=== PATIENT | male | born 1940 | race Hispanic/Latino ===

== ENCOUNTER 2022-02-02 02:06 | Observation (INO) | payer MEDICARE ==
[~2022-02-02] VITALS: Ht 180.3 cm; Wt 102.1 kg
[~2022-02-02 02:06] MED LIST: ALPR1TAB7 PO; DILT240C94 PO; ERGO500093 PO; LOSA100T58 PO; METO-408 PO; ROSU20TA31 PO; SPIR25TA6 PO
[2022-02-02 02:50] LABS: BASOPHILS % (AUTO) 0.5 % (0.0-5.0); EOSINOPHILS % (AUTO) 1.4 % (0.0-8.0); HEMATOCRIT 47.9 % (42-54); LYMPHOCYTES % (AUTO) 32.9 % (21.0-51.0); MEAN CORPUSCULAR HEMOGLOBIN 31.8 pg (27.0-33.0); MEAN CORPUSCULAR HGB CONC 33.6 g/dL (32.0-36.0); MEAN CORPUSCULAR VOLUME 94.5 fL (79-99); NEUTROPHILS % (AUTO) 54.8 % (40.0-77.0); PLATELET COUNT (AUTO) 251 K/uL (130-400); RED BLOOD CELL COUNT(AUTO) 5.07 MIL/uL (4.50-6.20); RED CELL DISTRIBUTION WIDTH 12.1 % (11.0-15.5); WHITE BLOOD COUNT (AUTO) 9.5 K/uL (4.8-10.8)
[2022-02-02 02:54] LABS: APPEARANCE,URINE CLEAR (CLEAR); BILIRUBIN,URINE NEGATIVE (NEGATIVE); COLOR,URINE COLORLESS (YELLOW); GLUCOSE, URINE (UA) NEGATIVE (NEGATIVE); KETONES,URINE NEGATIVE (NEGATIVE); LEUKOCYTE ESTERASE ,URINE NEGATIVE Leu/uL (NEGATIVE); NITRATE,URINE NEGATIVE (NEGATIVE); OCCULT BLOOD,URINE NEGATIVE (NEGATIVE); PH,URINE 6.5 (5.0-8.0); PROTEIN,URINE NEGATIVE (NEGATIVE); UROBILINOGEN,URINE 0.2 mg/dL (0.2-1.0)
[2022-02-02 02:59] LABS: CREATININE 1.2 mg/dL (0.5-1.5)
[2022-02-02 03:01] LABS: AMPHET/METH SCREEN,URINE NEGATIVE (NEGATIVE); BARBITURATE SCREEN, URINE NEGATIVE (NEGATIVE); BENZODIAZEPINES SCREEN,URINE POSITIVE (NEGATIVE); CANNABINOID SCREEN,URINE NEGATIVE (NEGATIVE); COCAINE SCREEN,URINE NEGATIVE (NEGATIVE); OPIATE SCREEN,URINE NEGATIVE (NEGATIVE); PHENCYCLIDINE SCREEN,URINE NEGATIVE (NEGATIVE)
[2022-02-02 03:04] LABS: ALBUMIN 3.8 g/dL (3.5-5.0); TOTAL PROTEIN, SERUM 8.1 g/dL (6.0-8.3)
[2022-02-02] MEDS ORDERED: ASPI-1197 PO (03:05)
[2022-02-02 03:09] LABS: POTASSIUM 5.8 mmol/L (3.5-5.1)
[2022-02-02] MEDS ORDERED: ALBUTEROL 0.083% 2.5 MG/3 ML INH IH SCH (04:30)
[2022-02-02] MEDS ORDERED: CALCIUM GLUC 1GM 1 GM in 0.9%NACL 100ML 100 ML IV ONE (04:30)
[2022-02-02] MEDS ORDERED: INSULIN HUMULIN R 100 UNIT/ML 3ML IV ONE (04:30)
[2022-02-02] MEDS ORDERED: DEXTROSE 50%-WATER 25 GM/50 ML VIAL IV ONE (04:30)
[2022-02-02] MEDS ORDERED: SODIUM BICARB 8.4% 50ML SYRINGE IVP ONE (04:30)
[2022-02-02] MEDS ORDERED: SODIUM BICARB 50MEQ 50ML VIAL 50 ML ONE (05:32)
[2022-02-02] MEDS ORDERED: CALCIUM GLUC 1GM/10ML VIAL ONE (05:33)
[2022-02-02] MEDS ORDERED: ACETAMINOPHEN 325 MG TAB PO PRN ×2 (06:00)
[2022-02-02] MEDS ORDERED: MORPHINE 2 MG SYG IV PRN (06:00)
[2022-02-02] MEDS ORDERED: ONDANSETRON 4MG INJ IV PRN (06:00)
[2022-02-02] MEDS: 0.9%NACL 1000ML 1,000 ML IV SCH ×2 (06:43→14:27)
[2022-02-02] MEDS ORDERED: KAYEXALATE 15GM/60ML PO ONE (07:00)
[2022-02-02] MEDS ORDERED: ADENOSINE 6MG VIAL IV ONE ×2 (07:05→07:30)
[2022-02-02] MEDS ORDERED: DILTIAZEM 25MG INJ IVP ONE (07:05)
[2022-02-02] MEDS ORDERED: DILTIAZEM 180MG SR CAP PO SCH (07:30)
[2022-02-02] MEDS ORDERED: ENOXAPARIN SODIUM 40 MG/0.4 ML SYRINGE SQ SCH (09:00)
[2022-02-02] MEDS ORDERED: METOPROLOL SUCCINATE 25 MG TAB.SR.24H PO SCH (09:00)
[2022-02-02] MEDS ORDERED: FAMOTIDINE 20MG VIAL IV SCH (09:00)
[2022-02-02 12:10] VITALS: BP 100/48
[2022-02-02] MEDS ORDERED: IOHEXOL 350 MG/ML 100ML INFUS..BTL IV ONE (15:04)
[2022-02-02] MEDS ORDERED: LOSA50TA64 PO (15:13)
[2022-02-02] MEDS ORDERED: ATORVASTATIN 40 MG TABLET PO SCH (21:00)
[2022-02-02] MEDS ORDERED: DILTIAZEM 120MG SR CAP PO SCH (21:00)
[2022-02-02] MEDS ORDERED: SPIRONOLACTONE 25 MG TAB PO SCH (21:00)
[2022-02-03] MEDS ORDERED: LOSARTAN 50 MG TABLET PO SCH (09:00)
[2022-02-03] MEDS ORDERED: METOPROLOL SUCCINATE 25 MG TAB.SR.24H PO SCH (09:00)
[2022-02-03] MEDS ORDERED: LOSARTAN 100 MG TABLET PO SCH (09:00)
[2022-02-03] MEDS ORDERED: ASPIRIN 81MG CHEW TAB PO SCH (09:00)
== END 2022-02-02 17:46 | disposition home or self-care (01) ==
LOC: EDH 02:06 → INTOOBSV 05:55 → EDHIP 05:55 → 2DH 12:24
PROVIDERS: ADMIT Hospitalist; ATTEND Hospitalist
DX: I47.1 Supraventricular tachycardia (principal); I21.A1 Myocardial infarction type 2; E87.5 Hyperkalemia; I95.9 Hypotension, unspecified; I35.0 Nonrheumatic aortic (valve) stenosis; I25.10 Atherosclerotic heart disease of native coronary artery without angina pectoris; I25.2 Old myocardial infarction; E78.5 Hyperlipidemia, unspecified; I10 Essential (primary) hypertension; Q33.3 Agenesis of lung; Z79.82 Long term (current) use of aspirin; Z79.899 Other long term (current) drug therapy
CPT/HCPCS: 99291; 96361; 74174; 96365; 96375; 75574; 71045; 84484 ×2; 80053; 80305; 85025; 82948 ×2; 83605; 86140; 36415; 94640; 96372; 84132; 81003; 93005 ×4; J1815; G0378; J0153; J3490 ×3; J7030; J0610; J1650 ×2; Q9967

== ENCOUNTER 2022-03-12 16:41 | Inpatient (IN) | payer MEDICARE ==
[~2022-03-12] VITALS: Ht 162.6 cm; Wt 101.2 kg
[~2022-03-12 16:41] MED LIST changes: +ASPI-1197 PO; -LOSA100T58 PO; +LOSA50TA64 PO
[2022-03-12 17:02] LABS: BASOPHILS % (AUTO) 0.6 % (0.0-5.0); EOSINOPHILS % (AUTO) 0.4 % (0.0-8.0); HEMATOCRIT 42.6 % (42-54); LYMPHOCYTES % (AUTO) 14.2 % (21.0-51.0); MEAN CORPUSCULAR HEMOGLOBIN 31.5 pg (27.0-33.0); MEAN CORPUSCULAR HGB CONC 32.9 g/dL (32.0-36.0); MEAN CORPUSCULAR VOLUME 95.7 fL (79-99); MONOCYTES % (AUTO) 7.8 % (3.0-13.0); NEUTROPHILS % (AUTO) 76.6 % (40.0-77.0); PLATELET COUNT (AUTO) 179 K/uL (130-400); RED BLOOD CELL COUNT(AUTO) 4.45 MIL/uL (4.50-6.20); RED CELL DISTRIBUTION WIDTH 12.8 % (11.0-15.5); WHITE BLOOD COUNT (AUTO) 8.3 K/uL (4.8-10.8)
[2022-03-12 17:12] LABS: CREATININE 1.1 mg/dL (0.5-1.5); POTASSIUM 4.1 mmol/L (3.5-5.1)
[2022-03-12 17:21] LABS: ALBUMIN 3.7 g/dL (3.5-5.0); TOTAL PROTEIN, SERUM 7.4 g/dL (6.0-8.3)
[2022-03-12 17:25] LABS: APPEARANCE,URINE CLEAR (CLEAR); BILIRUBIN,URINE NEGATIVE (NEGATIVE); COLOR,URINE LIGHT-YELLOW (YELLOW); GLUCOSE, URINE (UA) NEGATIVE (NEGATIVE); KETONES,URINE NEGATIVE (NEGATIVE); LEUKOCYTE ESTERASE ,URINE NEGATIVE Leu/uL (NEGATIVE); NITRATE,URINE NEGATIVE (NEGATIVE); OCCULT BLOOD,URINE NEGATIVE (NEGATIVE); PH,URINE 6.5 (5.0-8.0); PROTEIN,URINE NEGATIVE (NEGATIVE); UROBILINOGEN,URINE 0.2 mg/dL (0.2-1.0)
[2022-03-12 17:29] LABS: BACTERIA,URINE RARE /HPF (None Seen); MUCUS,URINE RARE LPF (None Seen); RBC,URINE 0-1 /HPF (0-1); SQUAMOUS EPITHELIAL CELL,UR RARE /HPF (0-2); WBC,URINE 0-1 /HPF (0-1)
[2022-03-12] MEDS ORDERED: ONDANSETRON 4MG TABLET PO PRN (21:00)
[2022-03-12] MEDS: FAMOTIDINE 20MG TAB PO SCH (21:23)
[2022-03-12] MEDS: ATORVASTATIN 40 MG TABLET PO SCH (21:23)
[2022-03-12] MEDS: ASPIRIN 81MG CHEW TAB PO SCH (21:23)
[2022-03-12 22:14] LABS: INR 0.95 (0.85-1.15); PROTHROMBIN TIME 10.4 SEC (9.6-11.6)
[2022-03-12 22:16] LABS: PARTIAL THROMBOPLASTIN TIME 24.2 SEC (26.3-35.5)
[2022-03-12 22:30] VITALS: BP 132/64
[2022-03-13] MEDS ORDERED: HEPARIN 5,000 UNIT VIAL IV ONE (00:41)
[2022-03-13] MEDS: HEPARIN 25,000 UNITS/250ML D5W 250 ML IV SCH ×3 (01:01→20:12)
[2022-03-13 04:53] VITALS: BP 107/56
[2022-03-13 07:35] VITALS: BP 114/60
[2022-03-13] MEDS: ASPIRIN 81MG CHEW TAB PO SCH (09:38)
[2022-03-13] MEDS: FAMOTIDINE 20MG TAB PO SCH ×2 (09:38→20:15)
[2022-03-13 11:45] VITALS: BP 119/59
[2022-03-13 15:30] VITALS: BP 103/60
[2022-03-13] MEDS ORDERED: METOPROLOL SUCCINATE 25 MG TAB.SR.24H PO ONE (18:49)
[2022-03-13] MEDS: ATORVASTATIN 40 MG TABLET PO SCH (20:15)
[2022-03-13 20:50] VITALS: BP 122/67
[2022-03-13] MEDS: DILTIAZEM 120MG SR CAP PO SCH (21:48)
[2022-03-14 00:02] VITALS: BP 127/64
[2022-03-14 02:19] LABS: BASOPHILS % (AUTO) 0.7 % (0.0-5.0); EOSINOPHILS % (AUTO) 1.5 % (0.0-8.0); HEMATOCRIT 39.1 % (42-54); LYMPHOCYTES % (AUTO) 30.1 % (21.0-51.0); MEAN CORPUSCULAR HEMOGLOBIN 31.6 pg (27.0-33.0); MEAN CORPUSCULAR HGB CONC 33.2 g/dL (32.0-36.0); MEAN CORPUSCULAR VOLUME 95.1 fL (79-99); MONOCYTES % (AUTO) 7.9 % (3.0-13.0); NEUTROPHILS % (AUTO) 59.6 % (40.0-77.0); PLATELET COUNT (AUTO) 150 K/uL (130-400); RED BLOOD CELL COUNT(AUTO) 4.11 MIL/uL (4.50-6.20); RED CELL DISTRIBUTION WIDTH 12.7 % (11.0-15.5); WHITE BLOOD COUNT (AUTO) 5.8 K/uL (4.8-10.8)
[2022-03-14 02:39] LABS: ALBUMIN 3.1 g/dL (3.5-5.0); CREATININE 0.8 mg/dL (0.5-1.5); MAGNESIUM 1.8 mg/dL (1.80-2.40); TOTAL PROTEIN, SERUM 6.4 g/dL (6.0-8.3)
[2022-03-14 03:27] VITALS: BP 118/64
[2022-03-14 07:30] VITALS: BP 128/65
[2022-03-14] MEDS: ASPIRIN 81MG CHEW TAB PO SCH (09:50)
[2022-03-14] MEDS: FAMOTIDINE 20MG TAB PO SCH ×2 (09:50→20:55)
[2022-03-14] MEDS: METOPROLOL SUCCINATE 25 MG TAB.SR.24H PO SCH (09:50)
[2022-03-14 11:35] VITALS: BP 131/70
[2022-03-14 15:29] LABS: INR 0.98 (0.85-1.15); PROTHROMBIN TIME 10.7 SEC (9.6-11.6)
[2022-03-14 15:30] LABS: PARTIAL THROMBOPLASTIN TIME 58.2 SEC (26.3-35.5)
[2022-03-14 15:35] VITALS: BP 108/62
[2022-03-14] MEDS ORDERED: HEPARIN 25,000 UNITS/250ML D5W 250 ML IV SCH (17:00)
[2022-03-14 20:00] VITALS: BP 124/66
[2022-03-14] MEDS: ATORVASTATIN 40 MG TABLET PO SCH (20:55)
[2022-03-14] MEDS: DILTIAZEM 120MG SR CAP PO SCH (20:58)
[2022-03-15] VITALS: BP 111/60
[2022-03-15 04:00] VITALS: BP 121/64
[2022-03-15 08:16] VITALS: BP 119/58
[2022-03-15] MEDS: METOPROLOL SUCCINATE 25 MG TAB.SR.24H PO SCH ×2 (08:28→08:33)
[2022-03-15] MEDS: FAMOTIDINE 20MG TAB PO SCH (08:29)
[2022-03-15] MEDS: ASPIRIN 81MG CHEW TAB PO SCH (08:29)
[2022-03-15 11:45] VITALS: BP 115/56
[2022-03-15 17:10] VITALS: BP 114/64
== END 2022-03-15 18:50 | disposition home or self-care (01) | DRG 281 ==
LOC: EDH 16:41 → EDHIP 20:59 → 4CH 21:43
PROVIDERS: ADMIT Hospitalist; ATTEND Hospitalist
DX: I35.0 Nonrheumatic aortic (valve) stenosis (principal); I21.A1 Myocardial infarction type 2; I48.20 Chronic atrial fibrillation, unspecified; I25.10 Atherosclerotic heart disease of native coronary artery without angina pectoris; I10 Essential (primary) hypertension; E78.00 Pure hypercholesterolemia, unspecified; F19.90 Other psychoactive substance use, unspecified, uncomplicated; I44.0 Atrioventricular block, first degree; Z79.82 Long term (current) use of aspirin; Z79.899 Other long term (current) drug therapy; Z82.49 Family history of ischemic heart disease and other diseases of the circulatory system; Z90.49 Acquired absence of other specified parts of digestive tract
CPT/HCPCS: 36415; 70450; 71045; 72125; 80053; 81001; 83735; 83880; 84484; 85025; 85610; 85730; 93005; 93306; G0378; J1644

== ENCOUNTER → 2022-04-12 | Outpatient (CLI) | payer MEDICARE ==
[2022-04-12 16:24] LABS: BASOPHILS % (AUTO) 0.4 % (0.0-5.0); EOSINOPHILS % (AUTO) 1.4 % (0.0-8.0); HEMATOCRIT 38.7 % (42-54); LYMPHOCYTES % (AUTO) 21.6 % (21.0-51.0); MEAN CORPUSCULAR HEMOGLOBIN 31.2 pg (27.0-33.0); MEAN CORPUSCULAR HGB CONC 32.8 g/dL (32.0-36.0); MEAN CORPUSCULAR VOLUME 95.1 fL (79-99); MONOCYTES % (AUTO) 9.2 % (3.0-13.0); NEUTROPHILS % (AUTO) 66.9 % (40.0-77.0); PLATELET COUNT (AUTO) 185 K/uL (130-400); RED BLOOD CELL COUNT(AUTO) 4.07 MIL/uL (4.50-6.20); RED CELL DISTRIBUTION WIDTH 12.8 % (11.0-15.5); WHITE BLOOD COUNT (AUTO) 7.8 K/uL (4.8-10.8)
[2022-04-12 16:40] LABS: CREATININE 0.9 mg/dL (0.5-1.5); POTASSIUM 3.8 mmol/L (3.5-5.1)
== END | disposition home or self-care (01) ==
LOC: LAB 12:46
PROVIDERS: ATTEND Internal Medicine
DX: I10 Essential (primary) hypertension (principal); I35.0 Nonrheumatic aortic (valve) stenosis
CPT/HCPCS: 36415; 80048; 85025

== ENCOUNTER → 2022-05-16 | Outpatient (CLI) | payer MEDICARE ==
[2022-05-16 12:21] LABS: BASOPHILS % (AUTO) 0.4 % (0.0-5.0); EOSINOPHILS % (AUTO) 1.9 % (0.0-8.0); HEMATOCRIT 41.9 % (42-54); LYMPHOCYTES % (AUTO) 27.6 % (21.0-51.0); MEAN CORPUSCULAR HEMOGLOBIN 30.6 pg (27.0-33.0); MEAN CORPUSCULAR HGB CONC 31.7 g/dL (32.0-36.0); MEAN CORPUSCULAR VOLUME 96.5 fL (79-99); MONOCYTES % (AUTO) 10.6 % (3.0-13.0); PLATELET COUNT (AUTO) 189 K/uL (130-400); RED BLOOD CELL COUNT(AUTO) 4.34 MIL/uL (4.50-6.20); RED CELL DISTRIBUTION WIDTH 14.1 % (11.0-15.5); WHITE BLOOD COUNT (AUTO) 5.7 K/uL (4.8-10.8)
== END | disposition home or self-care (01) ==
LOC: LAB 11:06
PROVIDERS: ATTEND Internal Medicine Cardiovascular Disease
DX: D64.9 Anemia, unspecified (principal)
CPT/HCPCS: 36415; 85025

== ENCOUNTER → 2023-01-13 | Outpatient (CLI) | payer MEDICARE ==
[~2023-01-13] MED LIST changes: +DILT240C81 PO; -DILT240C94 PO; -ROSU20TA31 PO; +ROSU20TA73 PO
== END | disposition home or self-care (01) ==
LOC: SHCH 13:37
PROVIDERS: ATTEND Internal Medicine
DX: I35.0 Nonrheumatic aortic (valve) stenosis (principal)
CPT/HCPCS: 93306

== ENCOUNTER → 2024-02-29 | Outpatient (CLI) | payer MEDICARE ==
[~2024-02-29] MED LIST changes: -ROSU20TA73 PO; +ROSU20TA98 PO
--- NOTE | 2024-03-04 12:03 | HMCSR ---
APPROVED REPORT EXAM: Two-dimensional and M-mode echocardiogram with Doppler and color Doppler. 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 2D Dimensions RVDd5.2 cmLVEF(%)51.0 (>50%)LVED Vol(simp.)187.0 mL IVSd1.2 (0.7-1.1cm)FS(%)26 %LVES Vol(simp.)89.0 mL LVDd5.7 (3.8-5.6cm)LA (2D)4.3 (1.6-4.0cm)LVEF(%, simp.)52 % PWd1.2 (0.7-1.1cm)IVC diam1.9 cm LVDs4.2 (2.5-4.0cm) Aortic Valve AoV Vmax2.2 m/Galdino Peak GR19.1 mmHgLVOT Vmax1.3 m/s AoV VTI0.5 mAo Mean GR9.9 mmHgLVOT VTI0.31 m Mitral Valve MV E Qhxs754.4 cm/sDECEL Yknn150 msMV Peak GR10 mmHg MV A Ciyx959.1 cm/sP 1/2 T79 msMV Mean GR5 mmHg E/A ratio1.3MVA (PHT)2.8 cm2 TDI E/E' Uoskii99.1E/E' Rzngijy99.5 Pulmonary Valve PV Vmax0.9 m/sPV VTI0.21 mPV Mean GR2 mmHg PV Peak GR3.0 mmHg Tricuspid Valve TR Vmax2.2 m/sRAP (EST) 8 ksFvUYAS78.0 mmHg TR Peak GR19.0 mmHg Left Ventricle The left ventricle is mildly dilated. There is mild concentric left ventricular hypertrophy. LVEF is 50-55%. Diastolic function is indeterminate. Right Ventricle The right ventricle is severely dilated. The right ventricular systolic function is normal. Atria The left atrium is mildly dilated. The right atrium is mildly dilated. 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 No prosthetic valve stenosis. MG 9.9 mmHg. AV Dimensionless Index is 0.58 Mitral Valve Mitral valve leaflets are mildly sclerotic but opens well. Mild posterior mitral annular calcificatio n. Mitral regurgitation is trace. There is no mitral valve stenosis. Tricuspid Valve The tricuspid valve leaflets appear normal. There is trace tricuspid regurgitation. Pulmonic Valve Pulmonic valve leaflets not well visualized. There is trace pulmonic valvular regurgitation. Great Vessels The aortic root is not well visualized but is probably normal size. IVC is dilated and collapses >50% with inspiration. Pericardium No pericardial effusion. Other Information Quality : GoodRhythm : NSR Conclusion LVEF is 50-55%. There is mild concentric left ventricular hypertrophy. Diastolic function is indeterminate. 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 No prosthetic valve stenosis. MG 9.9 mmHg. Mild posterior mitral annular calcification. Mitral regurgitation is trace.
== END | disposition home or self-care (01) ==
LOC: SHCH 07:36
PROVIDERS: ATTEND Internal Medicine
DX: I34.81 Nonrheumatic mitral (valve) annulus calcification (principal); I38 Endocarditis, valve unspecified; I42.0 Dilated cardiomyopathy
CPT/HCPCS: 93306